=== PATIENT | male | born 1970 | race Caucasian/White ===

== ENCOUNTER 2016-05-26 09:25 | Emergency (ER) | payer OTHER ==
[~2016-05-26] VITALS: Ht 180.3 cm; Wt 90.7 kg
[~2016-05-26 09:25] MED LIST: CIPRO 500MG TA500 MG PO; IBUPROFEN400 MG PO; MEDROL 4MG. DOSE4 MG PO; OMEPRAZOLE20 MG PO
[2016-05-26] MEDS ORDERED: BACTROBAN2% TP (09:53)
--- NOTE | 2016-05-26 09:54 | Emergency Room Report ---
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 N Clinical Suspician of Infection? N Mental Status: 1 - Regular (Normal Baseline) Sepsis Risk:Low Sepsis Risk Have you (or family members/close friends) recently traveled outside the [place]? N If Yes, where/when: Have you had exposure to infectious disease within the past month? TB? Other? Specify: Source patient, RN notes reviewed Exam Limitations no limitations Comment Working out of a bucket trimming tree and got hit in chin. No LOC but laceration on chin Cardiac Chest Pain Chest pain indicative of cardiac No ALLERGIES Coded Allergies: No Known Allergies (05/26/16) Home Medications Reported Medications No Known Home Medications History Medical History General CAD? No Angina: No HI: No Hypertension? No Hyperlipidemia? No CHF? No DVT? No PE? No COPD? No Asthma? No Anemia? No GERD? No Gastric ulcers? No GI Bleed? No Hernia? Yes Thyroid Problems? No Hypothyroidism? No CVA? No Seizures? No Diabetes? No Renal Insuffiency? No End Stage Renal Disease? No UTI? No Stones? No GB Disease: No Nephritic Syndrome? No Asplenia? No Hepatitis? No Sickle Cell Disease? No Arthritis? No Migraines? No Cataracts? No Glaucoma? No MRSA? No HIV? No TB? No Anxiety? No Depression? No Cancer? No Immunization Hx Ped.Immunizations UTD Yes DT/Tetanus [id number] Flu NEVER Pneumonia NEVER Surgical Hx Previous Surgery?Y ABDOMINAL SX AT 6 MO OLD HERNIA SX Thumb reattached Family History Family Hx Diabetes No CAD No Hypertension No Hyperlipidemia No Cancer Yes TB No Social History Smoking Hx Smoker: Never Smoker Tobacco: No Type N/A Packs/day < 1 Pack Alcohol Alcohol: No Review of Systems All Other Systems Reviewed and Negative Constitutional see HPI Skin see HPI Physical Exam Vital Signs Vital Signs Date Time Temp Pulse Resp B/P Pulse O2 O2 Flow FiO2 Ox Delivery Rate 05/26 09 98.1 95 18 138/100 96 General Appearance normal appearance, WD/WN, no apparent distress Respiratory Status No: respiratory distress. 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 No Results/Orders Current Medication Orders Sig/[place] Start time Last Medication Dose Route Stop Time Status Admin Multi-Ingredient 1 UDP ONCE ONE 05/26 1000 AC Ointment TP 05/26 1001 Multi-Ingredient 0 .STK-MED ONE 05/26 0848 DC Ointment TP Lidocaine HCl 10 ML ONCE ONE 05/26 0845 DC IM 05/26 945 Lidocaine HCl 0 .STK-MED ONE 05/26 0836 DC IJ Orders Procedure Date/time Status PROCEDURE TRAY SET UP 05/26 934 Active PREPARE CONSENT 05/26 934 Active Procedures Laceration/Wound Repair Laceration/Wound Repair Risks/benefits discussed with pt/guardian? Yes Tetanus status up to date Wound Location face (on chin) Wound Length (cm) 4 Wound's Depth, Shape sucutaneous tissue Wound Explored clean Risk of retained FB explained to pt/guardian? No Irrigated w/ Saline (ccs) 25 Wound Prep Hibiclens, Saline Anesthesia 1% Lidocaine Volume Anesthetic (ccs) 5 Wound Debrided none Wound Repaired With sutures Layer Closure No Total Number Sutures 6 Sterile Dressing Applied Yes Splint Applied No Departure Departure Time of Disposition 950 Disposition DC Home or Self Care(routine) Clinical Impression Primary Impression: Laceration of chin Qualifiers: Encounter type: initial encounter Qualified Code: S01.81XA - Laceration without foreign body of other part of head, initial encounter Condition STABLE Patient Instructions DI for Laceration Repair, Laceration Repair Additional Instructions Keep wound covered when in the sun. Use Vitamin E oil once or twice a day. Change dressing daily. Followup in 8 to 9 days to removed stitches. Discharge Counseling Counseled pt/family regarding diagnosis, test results, home care, follow up needs Prescriptions Current Visit Scripts MUPIROCIN 2% (Bactroban Oint) 0 GM TP DAILY #1 TUBE ED Critical Care Critical Care No If Critical Care minutes are documented, the time involved in the performance of seperately reportable procedures was not counted toward critical care time documented. I directly delivered medical care to this critically ill and/or injured patient. Timely evaluation and treatment was necessary to address the significant organ system(s) dysfunction present in this patient. at 0999
--- NOTE | 2016-05-26 09:54 | Emergency Room Report ---
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 N Clinical Suspician of Infection? N Mental Status: 1 - Regular (Normal Baseline) Sepsis Risk:Low Sepsis Risk Have you (or family members/close friends) recently traveled outside the [place]? N If Yes, where/when: Have you had exposure to infectious disease within the past month? TB? Other? Specify: Source patient, RN notes reviewed Exam Limitations no limitations Comment Working out of a bucket trimming tree and got hit in chin. No LOC but laceration on chin Cardiac Chest Pain Chest pain indicative of cardiac No ALLERGIES Coded Allergies: No Known Allergies (05/26/16) Home Medications Reported Medications No Known Home Medications History Medical History General CAD? No Angina: No RI: No Hypertension? No Hyperlipidemia? No CHF? No DVT? No PE? No COPD? No Asthma? No Anemia? No GERD? No Gastric ulcers? No GI Bleed? No Hernia? Yes Thyroid Problems? No Hypothyroidism? No CVA? No Seizures? No Diabetes? No Renal Insuffiency? No End Stage Renal Disease? No UTI? No Stones? No GB Disease: No Nephritic Syndrome? No Asplenia? No Hepatitis? No Sickle Cell Disease? No Arthritis? No Migraines? No Cataracts? No Glaucoma? No MRSA? No HIV? No TB? No Anxiety? No Depression? No Cancer? No Immunization Hx Ped.Immunizations UTD Yes DT/Tetanus [id number] Flu NEVER Pneumonia NEVER Surgical Hx Previous Surgery?Y ABDOMINAL SX AT 6 MO OLD HERNIA SX Thumb reattached Family History Family Hx Diabetes No CAD No Hypertension No Hyperlipidemia No Cancer Yes TB No Social History Smoking Hx Smoker: Never Smoker Tobacco: No Type N/A Packs/day < 1 Pack Alcohol Alcohol: No Review of Systems All Other Systems Reviewed and Negative Constitutional see HPI Skin see HPI Physical Exam Vital Signs Vital Signs Date Time Temp Pulse Resp B/P Pulse O2 O2 Flow FiO2 Ox Delivery Rate 05/26 09 98.1 95 18 138/100 96 General Appearance normal appearance, WD/WN, no apparent distress Respiratory Status No: respiratory distress. 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 No Results/Orders Current Medication Orders Sig/[place] Start time Last Medication Dose Route Stop Time Status Admin Multi-Ingredient 1 UDP ONCE ONE 05/26 1000 AC Ointment TP 05/26 1001 Multi-Ingredient 0 .STK-MED ONE 05/26 0848 DC Ointment TP Lidocaine HCl 10 ML ONCE ONE 05/26 0845 DC IM 05/26 945 Lidocaine HCl 0 .STK-MED ONE 05/26 0836 DC IJ Orders Procedure Date/time Status PROCEDURE TRAY SET UP 05/26 934 Active PREPARE CONSENT 05/26 934 Active Procedures Laceration/Wound Repair Laceration/Wound Repair Risks/benefits discussed with pt/guardian? Yes Tetanus status up to date Wound Location face (on chin) Wound Length (cm) 4 Wound's Depth, Shape sucutaneous tissue Wound Explored clean Risk of retained FB explained to pt/guardian? No Irrigated w/ Saline (ccs) 25 Wound Prep Hibiclens, Saline Anesthesia 1% Lidocaine Volume Anesthetic (ccs) 5 Wound Debrided none Wound Repaired With sutures Layer Closure No Total Number Sutures 6 Sterile Dressing Applied Yes Splint Applied No Departure Departure Time of Disposition 950 Disposition DC Home or Self Care(routine) Clinical Impression Primary Impression: Laceration of chin Qualifiers: Encounter type: initial encounter Qualified Code: S01.81XA - Laceration without foreign body of other part of head, initial encounter Condition STABLE Patient Instructions DI for Laceration Repair, Laceration Repair Additional Instructions Keep wound covered when in the sun. Use Vitamin E oil once or twice a day. Change dressing daily. Followup in 8 to 9 days to removed stitches. Discharge Counseling Counseled pt/family regarding diagnosis, test results, home care, follow up needs Prescriptions Current Visit Scripts MUPIROCIN 2% (Bactroban Oint) 0 GM TP DAILY #1 TUBE ED Critical Care Critical Care No If Critical Care minutes are documented, the time involved in the performance of seperately reportable procedures was not counted toward critical care time documented. I directly delivered medical care to this critically ill and/or injured patient. Timely evaluation and treatment was necessary to address the significant organ system(s) dysfunction present in this patient. at 0998
[2016-05-26 09:56] VITALS: BP 138/100
== END 2016-05-26 11:00 ==
LOC: ER 09:25
PROC: 0HQ1XZZ Repair Face Skin, External Approach (ICD-10-PCS; principal; 2016-05-26)
DX: S01.81XA Laceration without foreign body of other part of head, initial encounter (principal); W45.8XXA Other foreign body or object entering through skin, initial encounter; Y92.019 Unspecified place in single-family (private) house as the place of occurrence of the external cause